=== PATIENT | female | born 1970 | race Caucasian/White ===

== ENCOUNTER 2018-06-07 18:47 | Emergency (ER) | payer OTHER ==
[~2018-06-07] VITALS: Ht 154.9 cm; Wt 73.6 kg
[~2018-06-07 18:47] MED LIST: FAMO-96 PO; OMEP20CA16 PO
[2018-06-07 18:50] VITALS: Ht 154.9 cm; Wt 73.6 kg
[2018-06-07] MEDS ORDERED: CEFEPIME 2GM/50 ML (PMX) 50 ML IVPB STA (18:54)
[2018-06-07] MEDS ORDERED: ACETAMINOPHEN 325 MG TAB PO STA (18:54)
[2018-06-07] MEDS ORDERED: ONDANSETRON 4 MG INJ IV STA (18:54)
[2018-06-07] MEDS ORDERED: morphine 4 MG/ML VIAL IV STA (18:54)
[2018-06-07] MEDS ORDERED: SODIUM CHLORIDE 0.9% 1L BAG IV* STA (18:54)
[2018-06-07] MEDS ORDERED: VANCOMYCIN 1 GM (PMX) 250 ML IVPB ONE (19:00)
[2018-06-07] MEDS ORDERED: ACET-141 PO (20:40)
[2018-06-07] MEDS ORDERED: AMOX500C2 PO (22:21)
[2018-06-07] MEDS ORDERED: ACET500C5 PO (22:21)
[2018-06-07] MEDS ORDERED: IBUP-1542 PO (22:21)
[2018-06-07 22:36] VITALS: BP 115/79; PULSE 80; RESP 16
--- NOTE | 2018-06-09 06:51 | ERD ---
ER Documentation Chief Complaint Chief Complaint sore throat and body aches HPI This is a very pleasant 48-year-old female, Japanese-speaking with no past medical history the presents to the emergency department complaining of general ized myalgias sore throat runny nose and a productive cough for the past 24 hours. The patient has not taken any antipyretics prior to arrival. She denies any neck pain or headache. She has no shortness of breath at rest or exertion. She denies any recent travel or prolonged immobilization. She denies any chest pain or pressure that radiates to the neck arm back or jaw. She states she has no difficulty swallowing. She denies any abdominal pain. She had no hemoptysis no hematemesis no melanotic stools. She does states she has had recent sick contacts being her 2 children at home with similar symptoms. ROS All systems reviewed and are negative except as per history of present illness. Medications Home Meds Active Scripts Acetaminophen* (Tylophen*) 500 Mg Capsule, 2 CAP PO Q8H PRN for PAIN AND OR ELEVATED TEMP, #20 CAP Prov:ERIS CODY MD 06/07/18 Ibuprofen* (Motrin*) 600 Mg Tab, 600 MG PO Q6H PRN for PAIN AND OR ELEVATED TEMP, #30 TAB Prov:ERIS CODY MD 06/07/18 Amoxicillin* (Amoxicillin*) 500 Mg Cap, 500 MG PO TID for 7 Days, CAP Prov:ERIS CODY MD 06/07/18 Reported Medications Acetaminophen* (Acetaminophen*) 500 MG Extra Strength Tablet, 500 MG PO Q4H PRN for PAIN AND OR ELEVATED TEMP, TAB 06/07/18 Discontinued Scripts Omeprazole* (Omeprazole*) 20 Mg Capsule.dr, 20 MG PO DAILY, #30 CAP Prov:NHI SANCHEZ PA-C 11/27/14 Famotidine* (Pepcid*) 20 Mg Tablet, 20 MG PO DAILY for 5 Days, TAB Prov:NHI SANCHEZ PA-C 11/27/14 Allergies Allergies: Coded Allergies: No Known Allergy (Unverified , 06/07/18) PMhx/Soc Medical and Surgical Hx: pt denies Medical Hx, pt denies Surgical Hx History of Surgery: No Anesthesia Reaction: No Hx Neurological Disorder: No Hx Respiratory Disorders: No Hx Cardiac Disorders: No Hx Psychiatric Problems: No Hx Miscellaneous Medical Probl: No Hx Alcohol Use: No Hx Substance Use: No Hx Tobacco Use: No Smoking Status: Never smoker Physical Exam Vitals Vital Signs Date Temp Pulse Resp B/P (MAP) Pulse Ox O2 O2 Flow FiO2 Time Delivery Rate 06/07/18 98.5 80 16 115/79 99 Room Air 22:36 (91) 06/07/18 99.3 89 16 130/75 99 Room Air 22:08 (93) 06/07/18 100.6 19:17 06/07/18 Nasal 2 19:05 Cannula 06/07/18 100.6 99 20 149/76 97 18:50 (100) Physical Exam Constitutional:Well-developed. Well-nourished. HEENT:Normocephalic. Atraumatic.Pupils were equal round reactive to light. Dry mucous membranes.No tonsillar exudates, erythema of the oropharynx however uvula is midline and no enlargement of the tonsils. Tenderness over the frontal maxillary sinuses. No periorbital swelling or ecchymosis. Transparent rhinorrhea. Bogginess to the nasal mucosa. Neck: No nuchal rigidity. No lymphadenopathy. No posterior cervical spine tenderness or step-offs. Respiratory: Not using accessory muscles of respiration.Lungs were clear to auscultation bilaterally. No rhonchi. No rales. No wheezing. Cardiovascular: Regular rate regular rhythm.No murmurs. No rubs were appreciated.S1, S2 normal. Distal pulses are palpable 2+ bilaterally. GI: Abdomen was soft. Nontender. Non Distended. No pulsatile abdominal masses or bruits. No rebound. No guarding. Bowel sounds were present and normal. Muscle skeletal: Full range of motion of both the upper and lower extremities bilaterally.Normal muscle tone.No assymetrical calf tenderness or swelling. Skin: No petechia, no purpura. No lesions on the palms or the soles of the feet. No maculopapular rash. NEURO: Patient was alert, awake, orientated x3.No facial droop. Gait observed and normal with no ataxia.Speech had regular rate and rhythm. No focal neurological deficits. Result Diagram: 06/07/18190306/07/181903 Results 24 hrs Laboratory Tests Test 06/07/18 19:04 06/07/18 19:08 06/07/18 19:30 06/07/18 22:25 White Blood Count 16.8 10^3/ul Red Blood Count 4.66 10^6/ul Hemoglobin 13.2 g/dl Hematocrit 40.0 % Mean Corpuscular 85.8 fl Volume Mean Corpuscular 28.3 pg Hemoglobin Mean Corpuscular 33.0 g/dl Hemoglobin Concen t Red Cell 14.2 % Distribution Width Platelet Count 340 10^3/UL Mean Platelet 10.1 fl Volume Immature 0.600 % Granulocytes % Neutrophils % 85.7 % Lymphocytes % 8.1 % Monocytes % 4.9 % Eosinophils % 0.3 % Basophils % 0.4 % Nucleated Red 0.0 /100WBC Blood Cells % Immature 0.100 10^3/ul Granulocytes # Neutrophils # 14.4 10^3/ul Lymphocytes # 1.4 10^3/ul Monocytes # 0.8 10^3/ul Eosinophils # 0.1 10^3/ul Basophils # 0.1 10^3/ul Nucleated Red 0.0 10^3/ul Blood Cells # Prothrombin Time 13.6 Sec Prothrombin Time 1.1 Ratio INR International 1.03 Normalized Ratio Activated 30.1 Sec Partial Thrombopl ast Time Sodium Level 139 mmol/L Potassium Level 3.6 mmol/L Chloride Level 103 mmol/L Carbon Dioxide 25 mmol/L Level Anion Gap 11 Blood Urea 7 mg/dl Nitrogen Creatinine 0.51 mg/dl Est Glomerular > 60 mL/min Filtrat Rate mL/min Glucose Level 118 mg/dl Calcium Level 9.6 mg/dl Total Bilirubin 0.5 mg/dl Direct Bilirubin 0.00 mg/dl Indirect 0.5 mg/dl Bilirubin Aspartate Amino 17 IU/L Transf (AST/SGOT) Alanine 17 IU/L Aminotransferase (ALT/SGPT) Alkaline 107 IU/L Phosphatase Troponin I < 0.012 ng/ml B-Type 124 PG/ML Natriuretic Peptide Total Protein 7.7 g/dl Albumin 4.4 g/dl Globulin 3.30 g/dl Albumin/Globulin 1.33 Ratio Amylase Level 67 U/L Lipase 38 U/L POC Venous 1.2 mmol/L 1.0 mmol/L Lactate Urine Color YELLOW Urine Clarity CLOUDY Urine pH 7.0 Urine Specific 1.019 [place] Urine Ketones 1+ mg/dL Urine Nitrite NEGATIVE mg/dL Urine Bilirubin NEGATIVE mg/dL Urine NEGATIVE mg/dL Urobilinogen Urine Leukocyte NEGATIVE [place]/ul Esterase Urine Microscopic 3 /HPF RBC Urine Microscopic 1 /HPF WBC Urine Squamous MANY /HPF Epithelial Cells Urine Bacteria FEW /HPF Urine Mucus FEW /HPF Urine Hemoglobin NEGATIVE mg/dL Urine Glucose NEGATIVE mg/dL Urine Total NEGATIVE mg/dl Protein Current Medications Medications Dose Sig/Macho Start Time Status Last (Trade) Ordered Route PRN Stop Time Admin Dose Reason Admin Sodium 2,210 ml BOLUS OVER 2 06/07/18 DC 06/07/18 Chloride HOURS STAT 18:54 19:16 (NS) IV* 06/07/18 18:56 650 mg ONCE STAT 06/07/18 DC 06/07/18 Acetaminophen PO 18:54 19:17 (Tylenol 06/07/18 18:56 Tab) Morphine 4 mg ONCE STAT 06/07/18 DC 06/07/18 Sulfate IV 18:54 19:16 (morphine) 06/07/18 18:56 Ondansetron 4 mg ONCE STAT 06/07/18 DC 06/07/18 HCl (Zofran IV 18:54 19:16 Inj) 06/07/18 18:56 Cefepime HCl 50 ml @ ONCE STAT 06/07/18 DC 06/07/18 100 mls/hr IVPB 18:54 19:16 06/07/18 19:23 Vancomycin 250 ml @ ONCE ONCE 06/07/18 DC 06/07/18 HCl 125 mls/hr IVPB 19:00 19:44 06/07/18 20:59 Procedures/MDM This is a 48-year-old female that presented to the emergency department with Sirs criteria and flagged for sepsis. The patient was immediately bed in her ro om, placed in a color television console monitor continuous pulse oximetry and IV access was established by nursing staff. The patient blood cultures and urine cultures obtained. She was given a 30 cc/kg bolus of normal saline and had been treated with vancomycin and cefepime for sepsis of unclear etiology. However the lactic acid was normal and therefore the patient was not septic. She did have clinical dehydration. The patient had physical exam findings concerning for sinusitis and did complain of a mild headache. Therefore did not feel is necessary to obtain a CT scan of the head reviewed by myself the radiologist and there was no intracerebral hemorrhage mass-effect or midline shift and no sub-subdural empyema. The patient's influenza swab was negative. The patient had leukocytosis. The patient no severe electrolyte abnormalities. The patient had received analgesic medication her headache had completely resolved. Chest radiograph showed no infiltrate or pneumothorax. 12 Lead EKG tracing ordered and reviewed by myself showed: Normal sinus rhythm of 97 bpm and no arrhythmia. RI interval normal. QRS duration normal. No ST segment elevation No ST segment depression. No changes consistent with acute ischemia. Observation Note: Time: 4 hours Family Hx: No Hypertension Evaluation: Multiple exams showed improving symptoms and no evidence of sepsis, impending airway failure or worsening of her conditions. The patient appeared to have a viral pharyngitis with sinusitis will be discharged home with antibiotics. The patient was discharged home in fair condition. They were instructed to return to the emergency department at any time if there was any worsening of their condition. The patient stated they would follow up with their PCP in the next 24-48 hours to initiate a suitable medication regimen under the care of their PCP as well as to allow their PCP to monitor any drug reactions. The patient was discharged home with prescriptions after they gave informed consent to the new medication. They were also fully informed by myself on the adverse effects and adverse drug interactions in order to provide adequate safeguards to prevent possible adverse reactions to medications. Critical Care: Time: 65 minutes Treatments/Evaluations: Close monitoring and treatment of unstable vital signs, cardiorespiratory, and neurologic status, while maintaining tight balance of fluid, respiratory, and cardiac interventions. Time does not include performing any of the above billable procedures. Departure Diagnosis: Primary Impression: Upper respiratory infection URI type: unspecified URI Qualified Codes: J06.9 - Acute upper respiratory infection, unspecified Additional Impressions: Sinusitis Sinusitis location: frontal Chronicity: acute Recurrence: non-recurrent Qualified Codes: J01.10 - Acute frontal sinusitis, unspecified SIRS (systemic inflammatory response syndrome) Condition: Fair Patient Instructions: Sinusitis, Abx Tx Referrals: [facility] (PCP) ERIS CODY MD Jun 09, 2018 06:50
== END 2018-06-07 22:38 | disposition home or self-care (01) ==
LOC: E/R 18:47
DX: J06.9 Acute upper respiratory infection, unspecified (principal); J01.10 Acute frontal sinusitis, unspecified; R65.10 Systemic inflammatory response syndrome (SIRS) of non-infectious origin without acute organ dysfunction; R51 Headache; R07.9 Chest pain, unspecified
CPT/HCPCS: 36415; 70450; 71045; 80053; 81001; 82150; 83605; 83690; 83880; 84484; 85025; 85610; 85730; 87040; 87086; 87400; 93005; 96374; 96375; J0692; J2270; J2405; J3370; J7030; Z7502; Z7610